=== PATIENT | male | born 1990 | race Caucasian/White ===

== ENCOUNTER 2019-04-30 09:53 | Emergency (ER) | payer OTHER ==
[2019-04-30] MEDS ORDERED: solu-MEDROL 125 MG IV ONE (10:49)
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
[2019-04-30] MEDS ORDERED: PROVENTIL 2.5 MG/3 ML NEB IH ONE ×2 (11:00→11:07)
[2019-04-30 11:20] LABS: INR 1.05 (0.8-3.0); PROTIME 11.9 SECONDS (8.83-12.87)
[2019-04-30 11:33] LABS: ALBUMIN 4.6 g/dL (3.5-5.0); ALKALINE PHOSPHATASE 57 U/L (38-126); ANION GAP 12.7 MEQ/L (5-15); BLOOD UREA NITROGEN 7 mg/dL (9-20); CHLORIDE 103 mmol/L (98-107); Calcium 9.5 mg/dL (8.4-10.2); Carbon Dioxide 32 mmol/L (22-30); Creatinine 1 0.74 mg/dL (0.66-1.25); Glucose 89 mg/dL (74-106); NT PRO BNP 41.2 pg/mL (0-450); Potassium 3.5 mmol/L (3.5-5.1); SGOT/AST 37 U/L (17-59); SGPT/ALT 47 U/L (0-50); SODIUM 144 mmol/L (137-145); Total Protein 8.2 g/dL (6.3-8.2)
[2019-04-30 11:43] LABS: Absolute Neutrophil Ct (ANC) 5.33 (1.4-6.9); BASOPHIL % 0.2 % (0.0-0.4); Eosinophil % 1.6 % (0.00-5.0); Eosinophil (Absolute #) 0.15 (0-0.5); Hematocrit 41.2 % (42-50); Hemoglobin 14.5 gm/dl (12.5-18.0); Lymphocyte (Absolute #) 2.81 (1.0-4.6); Lymphocytes % 30.3 % (24.0-44.0); Mean Cell Volume 89.6 fl (78-100); Mean Corpuscular Hemoglobin 31.5 pg (26-32); Mean Corpuscular Hgb Concent. 35.2 g/dl (32-36); Mean Platelet Volume 8.6 fl (6-9.5); Monocyte (Absolute #) 0.95 (0.0-1.3); Monocytes % 10.3 % (0.0-12.0); Neutrophil % 57.6 % (36.0-66.0); Platelet Count 324 K/mm3 (150-450); Red Cell Distribution Width 11.9 % (11.5-14.0); White Blood Count 9.3 K/mm3 (4.0-10.5)
[2019-04-30 11:45] LABS: Basophil (Absolute #) 0.02 (0-0.4)
[2019-04-30] MEDS ORDERED: HYDROCODONE-ACETAMIN 2.5-108/5 ML SOLUTION PO STA (11:46)
[2019-04-30] MEDS ORDERED: solu-MEDROL 125 MG ONE (11:47)
[2019-04-30 11:48] LABS: D-DIMER QUANTITATION < 215 ng/mL (215-500)
[2019-04-30] MEDS ORDERED: HYDROCODONE-ACETAMIN 2.5-108/5 ML SOLUTION ONE (11:56)
[2019-04-30 12:02] VITALS: BP 133/69; PULSE 71
[2019-04-30 12:33] VITALS: O2SAT 100
== END 2019-04-30 12:52 | disposition home or self-care (01) ==
LOC: ED 09:53
DX: J40 Bronchitis, not specified as acute or chronic (principal); R05 Cough
CPT/HCPCS: 36000; 36415; 80053; 83605; 83880; 85025; 85379; 85610; 86308; 87651; 93005; 93041; 94150; 94640; 94760; 96374; 99284; J2930; J7609; A9270-GY

== ENCOUNTER 2019-06-05 19:09 | Emergency (ER) | payer OTHER ==
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
[2019-06-05 20:33] LABS: INFLUENZA A NEGATIVE (NEGATIVE); INFLUENZA B NEGATIVE (NEGATIVE); RESPIRATORY SYNCTIAL VIRUS NEGATIVE (Negative)
[2019-06-05] MEDS ORDERED: solu-MEDROL 125 MG IM ONE (20:43)
[2019-06-05] MEDS ORDERED: Levofloxacin 250MG Tablet PO ONE (20:44)
[2019-06-05] MEDS ORDERED: HYDROCODONE-ACETAMIN 2.5-108/5 ML SOLUTION PO STA (20:44)
[2019-06-05 20:47] VITALS: BP 103/66; PULSE 84; O2SAT 99
[2019-06-05] MEDS ORDERED: HYDROCODONE-ACETAMIN 2.5-108/5 ML SOLUTION ONE (20:59)
[2019-06-05] MEDS ORDERED: solu-MEDROL 125 MG ONE (20:59)
[2019-06-05] MEDS ORDERED: Levofloxacin 250MG Tablet ONE (20:59)
--- NOTE | 2019-06-06 08:44 | XRAY ---
Indication: Fever and cough. Comparison: April 29, 2019. Portable chest again demonstrates normal heart, lungs, and bony thorax.
== END 2019-06-05 21:18 | disposition home or self-care (01) ==
LOC: ED 19:09
DX: J40 Bronchitis, not specified as acute or chronic (principal)
CPT/HCPCS: 71045; 87631; 87651; 96372; 99284; J2930; A9270-GY